=== PATIENT | male | born 1935 | race Caucasian/White ===

== ENCOUNTER 2019-09-18 08:27 | Outpatient (CLI) | payer MEDICARE, SELFPAY ==
--- NOTE | 2019-09-18 08:34 | XR_ITS ---
WS: [id number] CHEST 2 VIEWS HISTORY: COUGH, ASTHMA COMPARISON: None available. Lungs: Clear with no abnormality. No pleural effusion or pneumothorax. Cardiac size: Normal. Mediastinum/Aorta: Mild atherosclerosis aorta. Bones: Mild thoracic spondylosis. Advanced degenerative changes at the AC joints. XR/XR chest 2V* [id number] IMPRESSION: No acute cardiopulmonary disease. Partially calcified aorta.
== END 2019-09-18 08:28 | disposition home or self-care (01) ==
LOC: RADWPI 08:31
PROVIDERS: PCP Family Medicine; Referring Provider Family Medicine; Visit Provider Family Medicine
DX: J45.909 Unspecified asthma, uncomplicated (principal); I70.0 Atherosclerosis of aorta
CPT/HCPCS: 71046

== ENCOUNTER 2020-01-29 14:23 | Outpatient (CLI) | payer MEDICARE, SELFPAY ==
--- NOTE | 2020-01-29 14:56 | CT_ITS ---
WS: [id number] CT HEAD TECHNIQUE: Noncontrast CT of the head obtained from the skullbase to the vertex. CLINICAL INFORMATION: TIA COMPARISON: CT 7 ,012. DLP: 992.[address] scans at [facility] use at least one of these dose optimization techniques: automat ed exposure control; mA and/or kV adjustment per patient size (includes targeted exams where dose is matched to clinical indication); or iterative reconstruction. FINDINGS: No evidence of intracranial hemorrhage or mass effect. Ventricular system and basal cisterns are gautam nt. Moderate small vessel changes with moderate parenchymal volume loss. No extra-axial fluid collect ions. No evidence of mass or mass effect. Normal aggarwal-white differentiation. Mastoid air cells are well aerated. Mild mucosal thickening in the paranasal sinuses with partial opa cification the ethmoid air cells. Chronic appearing bony remodeling in the maxillary sinuses consiste nt with chronic sinusitis. CT/CT head wo con* [id number] IMPRESSION: 1. No evidence of intracranial hemorrhage or mass effect. 2. Moderate small vessel changes with moderate parenchymal volume loss. 3. Partial opacification of the ethmoid air cells with mucosal thickening. Ashley dence of chronic sinusitis in the maxillary sinuses. 4. Mastoid air cells are well aerated.
== END 2020-01-29 14:24 | disposition home or self-care (01) ==
LOC: RADWPI 14:27
PROVIDERS: PCP Family Medicine; Visit Provider Family Medicine
DX: G45.9 Transient cerebral ischemic attack, unspecified (principal)
CPT/HCPCS: 70450

== ENCOUNTER 2020-02-15 13:05 | Outpatient (CLI) | payer MEDICARE, SELFPAY ==
--- NOTE | 2020-02-15 13:11 | USCV_ITS ---
Jordon Posey Age: 84 Gender: M : 1935 Exam Date: 02/15/2020 13:40 Ordering Phys: Telma Chance MD Technologist: Mellisa Green Exam Location: [facility] [place]ication: TIA BP: 109 / 58 HR: 61 Rhythm: Sinus Technical Quality: Technically difficult study MEASUREMENTS (Male / Female) Normal Values 2D ECHO LV Diastolic Diameter PLAX 2.9 cm 4.2 - 5.9 / 3.9 - 5.3 cm LV Systolic Diameter PLAX 1.7 cm LV Chamber Size 2.6 cm IVS Diastolic Thickness 1.5 cm 0.6 - 1.0 / 0.6 - 0.9 cm IVS Systolic Thickness 1.6 cm LVPW Diastolic Thickness 1.8 cm 0.6 - 1.0 / 0.6 - 0.9 cm LVPW Systolic Thickness 2.3 cm RV Chamber Size 2.6 cm LVOT Diameter 2.1 cm LV Ejection Fraction 2D Teich 73.6 % LV Ejection Fraction MOD 2C 64.0 % LV Ejection Fraction 2C AL 63.9 % LA Diameter 4.0 cm LA Width 4.1 cm LA Height 4.5 cm RA Width 3.1 cm RA Height 4.6 cm Aorta at Sinotubular Diameter 3.0 cm M-MODE LV Diastolic Diameter MM 5.3 cm 4.2 - 5.9 / 3.9 - 5.3 cm LV Systolic Diameter MM 3.8 cm LV Ejection Fraction MM Teich 54.8 % IVS Diastolic Thickness MM 0.8 cm 0.6 - 1.0 / 0.6 - 0.9 cm IVS Systolic Thickness MM 0.9 cm LVPW Diastolic Thickness MM 0.8 cm 0.6 - 1.0 / 0.6 - 0.9 cm LVPW Systolic Thickness MM 1.2 cm Aortic Annulus Diameter 3.6 cm LA Ao Ratio MM 1.1 MV E Point Septal Separation 0.7 cm DOPPLER AV Peak Velocity 114.0 cm/s LVOT Peak Velocity 97.0 cm/s AV Area Cont Eq vti 2.9 cm squared AV Area Cont Eq pk 2.9 cm squared MV Area PHT 2.7 cm squared Mitral E to A Ratio 0.9 MV E' Velocity 15.0 cm/s Mitral E to MV E' Ratio 5.3 Mitral E to LV E' Lateral Ratio 4.8 Mitral E to LV E' Septal Ratio 5.9 TR Peak Velocity 175.0 cm/s TR Peak Gradient 12.2 mmHg TV Peak E Velocity 43.0 cm/s Right Atrial Pressure 3.0 mmHg Pulmonary Artery Systolic Pressu 15.3 mmHg PV Peak Velocity 58.0 cm/s RV Acceleration Time 0.3 s RV Ejection Time 0.4 s RV AcT/ET 0.7 FINDINGS Left Ventricle Normal left ventricular size and systolic function, EF 58 %. No regional wall motion abnormalities. Moderate left ventricular hypertrophy. Right Ventricle The right ventricle is normal in size and function. Right Atrium The right atrium is normal in size. Left Atrium The left atrium is normal in size. Mitral Valve Thickened mitral valve. Mild mitral annular calcification. Aortic Valve Thickened aortic valve. Trace aortic valve regurgitation. Tricuspid Valve No gross abnormalities noted Pulmonic Valve Pulmonic valve not well visualized. Pericardium Normal pericardium without effusion. Aorta Plaque seen in the ascending aorta. Mildly dilated aortic root, measuring 3.8 cm just above the level of the sinuses CONCLUSIONS Normal left ventricular size and systolic function, EF 58 %. No regional wall motion abnormalities. Moderate left ventricular hypertrophy. Thickened mitral valve. Mild mitral annular calcification. Thickened aortic valve. Trace aortic valve regurgitation. There is no pericardial effusion. Plaque seen in the ascending aorta. Mildly dilated aortic root, measuring 3.8 cm just above the level of the sinuses No previous study is available for comparison. Technically somewhat difficult study because of poor ultrasonic window Dr Jocelin Akins MD FACC (Electronically Signed) Final Date: 15 February 2020 16:29 S
--- NOTE | 2020-02-15 13:15 | USCV_ITS ---
Jordon Posey Age: 84 Gender: M : 1935 Exam Date: 02/15/2020 13:51 Ordering Phys: Telma Chance MD Technologist: Mellisa Green Exam Location: [facility] – [place] Indication: TIA Risk Factors: Previous Vascular Surgery: Right Brachial BP: / Left Brachial BP: / Right Left Velocity (cm/s) Spectral Plaque Velocity (cm/s) Spectral Plaque Syst/Diast Broadening Syst/Diast Broadening 79.40/ 17.60 Prox CCA 67.90 / 14.90 94.80/ 25.40 Mid CCA 60.40 / 15.80 71.70/ 22.10 Distal CCA 53.90 / 16.70 54.90/ 20.00 Prox ICA 43.10 / 16.20 62.00/ 23.50 Mid ICA 58.80 / 28.20 63.50/ 29.20 Distal ICA 74.50 / 29.00 123.50 ECA 73.60 0.67 ICA/CCA 1.23 Antegrade Vertebral Antegrade 74.10/ 23.00 cm/s 39.60/ 15.90 cm/s Tri Subclavian Tri 44.40 53.30 FINDINGS Mild to moderate heterogeneous plaques at the left bifurcation and proximal carotid artery Minimal plaques in the right bifurcation and internal carotid artery Antegrade flow in the vertebral arteries bilaterally Normal Doppler flow velocities in the external carotid and subclavian arteries bilaterally CONCLUSIONS Mild to moderate heterogeneous plaques at the left bifurcation and internal carotid arterywith velocity elevation consistent with 16-49% stenosis. Minimal plaques in the right bifurcation and internal carotid artery. No previous studies are available for comparison. Dr Jocelin Akins MD FACC (Electronically Signed) Final Date: 15 February 2020 18:37 S
== END 2020-02-15 13:06 | disposition home or self-care (01) ==
LOC: RAD 13:05
PROVIDERS: PCP Family Medicine; Visit Provider Family Medicine
DX: G45.9 Transient cerebral ischemic attack, unspecified (principal)
CPT/HCPCS: 93306; 93880

== ENCOUNTER → 2020-02-21 09:54 | Outpatient (BNVA) | payer MEDICARE, SELFPAY | PROVIDERS: PCP Family Medicine; Referring Provider Family Medicine; Visit Provider Nurse Practitioner | DX: G25.9 Extrapyramidal and movement disorder, unspecified (principal); I99.8 Other disorder of circulatory system; Z86.73 Personal history of transient ischemic attack (TIA), and cerebral infarction without residual deficits | CPT/HCPCS: 99204 ==

== ENCOUNTER 2020-03-05 12:25 | Outpatient (CLI) | payer MEDICARE, SELFPAY ==
--- NOTE | 2020-03-05 13:00 | MR_ITS ---
WS: [id number] MRI HEAD WITHOUT CONTRAST TECHNIQUE: Sagittal T1, T2 axial, T2 axial FLAIR, axial and coronal T1 images, axial susceptibility w eighted imaging, axial diffusion weighted images, and coronal T2 images were obtained. CLINICAL INFORMATION: Z86.73 Personal history of transient ischemic attack (TIA... COMPARISON: CT January 29, 2020 FINDINGS: No evidence of restricted diffusion to suggest acute ischemia. Ventricular system and basal cisterns are patent. Moderate small vessel changes. Moderate parenchymal volume loss. Small vessel changes in the yayo. Normal vascular flow voids at the skull base. No extra-axial fluid collections. No evidence of mass or mass effect. Moderate mucosal thickening in the paranasal sinuses with partial opacification of the right frontal sinus and frontal ethmoidal recesses. Evidence of prior maxillary antrostomies with changes of chroni c sinusitis in the maxillary sinuses with mild mucosal thickening. No hemosiderin on susceptibly weighted images. Normal optic chiasm and pituitary infundibulum. Mild t o moderate symmetric atrophy involving the temporal lobes and hippocampal formations. MR/MR head wo con* [id number] IMPRESSION: 1. No evidence of restricted diffusion to suggest acute ischemia. 2. Moderate small vessel changes with moderate parenchymal volume loss. 3. Moderate mucosal thickening with partial opacification of the right frontal sinus and frontal ethmoidal recesses. Evidence of prior maxillary sinus antros tomies. 4. Mild to moderate symmetric atrophy involving the temporal lobes and hippoca mpal formations. 5. No hemosiderin on susceptibly weighted images.
== END 2020-03-05 12:26 | disposition home or self-care (01) ==
LOC: RADSHAW 12:29
PROVIDERS: PCP Family Medicine; Visit Provider Nurse Practitioner
DX: Z86.73 Personal history of transient ischemic attack (TIA), and cerebral infarction without residual deficits (principal)
CPT/HCPCS: 70551

== ENCOUNTER → 2020-04-30 13:04 | Outpatient (BNVA) | payer MEDICARE, SELFPAY | PROVIDERS: PCP Family Medicine; Visit Provider Nurse Practitioner | DX: R25.1 Tremor, unspecified (principal) | CPT/HCPCS: 99213 ==

== ENCOUNTER → 2022-10-14 08:10 | Outpatient (BNVA) | payer MEDICARE, SELFPAY | PROVIDERS: PCP Family Medicine Adult Medicine; Visit Provider Family Medicine Adult Medicine | DX: E53.8 Deficiency of other specified B group vitamins (principal); G20 Parkinson's disease; N40.0 Benign prostatic hyperplasia without lower urinary tract symptoms; R60.9 Edema, unspecified; G45.9 Transient cerebral ischemic attack, unspecified; K59.09 Other constipation; K31.84 Gastroparesis; E78.00 Pure hypercholesterolemia, unspecified | CPT/HCPCS: 80053; 80061; 83036; 84443; 85025 ==

== ENCOUNTER → 2022-12-08 15:08 | Outpatient (BNVA) | payer MEDICARE, SELFPAY | PROVIDERS: PCP Family Medicine Adult Medicine; Visit Provider Surgery | DX: K40.20 Bilateral inguinal hernia, without obstruction or gangrene, not specified as recurrent (principal) | CPT/HCPCS: 99203 ==

== ENCOUNTER 2022-12-30 08:57 | Day surgery (SDC) | payer MEDICARE, SELFPAY ==
[2022-12-29 12:11] VITALS: BMI 22.8
[2022-12-30] VITALS (9 sets, daily range): BP systolic 141–185; BP diastolic 72–96; PULSE 66–80; RESP 16–18; TEMP 36.1–36.6; O2SAT 93–100
--- NOTE | 2022-12-30 09:38 | ECG_ITS ---
[facility] Test Date: 2022-12-30 Pat Name: Jordon Posey Department: Room: Gender: Male Care Analyst: : 1935 Requested By: Darian Segovia Order Number: [id number] Charlie MD: Costa Gonzales M.D. Measurements Intervals Ralph Rate: 69 P: 60 WY: 179 QRS: 44 QRSD: 87 T: 38 QT: 388 QTc: 418 Interpretive Statements SINUS RHYTHM WITH OCCASIONAL SUPRAVENTRICULAR PREMATURE COMPLEXES No previous ECG available for comparison Electronically Signed On 12-30-2022 16:17:19 CDT by Costa Gonzales M.D. [id number]
[2022-12-30] MEDS: sodium chloride 0.9% 1,000 ML 30 ML IV (09:51)
[2022-12-30] MEDS: vancomycin 1,000 MG in sodium chloride 0.9% 250 ML 250 MG IV (09:52)
--- NOTE | 2022-12-30 10:48 | W.PM.OPSUD ---
Surgery/Procedure H&P Update DATE OF PROCEDURE: December 30, 2022 DATE H&P PERFORMED: 12/08/22 H&P UPDATE INFORMATION: I have reviewed H&P completed within last 30 days, I have examined patient prior to procedure and No changes to prior documentation PREOP DIAGNOSIS: Bilateral inguinal hernias PLANNED PROCEDURE: Operation Date: 12/30/22 10:45 Proposed Procedures p ap bilateral inguinal hernia with mesh 14486 2x K40.20(Bilateral) - Maxx Wolfe DO
[2022-12-30] MEDS: lidocaine-epi 2% 20 mL INJ (11:27)
--- NOTE | 2022-12-30 12:03 | PM.OP ---
Operative Report Date of procedure: December 30, 2022 Pre-op diagnosis: Preop Diagnosis Bilateral inguinal hernias Post-op diagnosis: other (Bilateral indirect inguinal hernias) Procedure done: Laparoscopic repair of bilateral inguinal hernias with mesh Implants: Left and right 3D max extra-large mesh Surgeon: Dr. Maxx Wolfe DO Anesthesia: General Estimated blood loss (mL): 5 Complications: None apparent Brief History: This is a very pleasant 87-year-old gentleman who presented my office with bilateral inguinal hernias. Laparoscopic repair with mesh was indicated. The risk and benefits were explained and documented. Procedure: Patient was wheeled into the operative room and placed on the OR table in a supine position. Abdomen was inspected prepped and draped in usual sterile fashion. Time-out was performed and all present were in agreement. A 15 blade scalpel was used to make 1.2 centimeter incision infraumbilically. Combination of sharp and blunt dissection was performed down to the anterior rectus sheath which was opened sharply. The dissecting balloon was then inserted into the space of Retzius and blown up. We put the camera into the port and identified that we were in the correct space. I then placed 2 5 millimeter trocars suprapubically in the midline. I then used endokitners to bluntly dissect in the space of Retzius out laterally. An indirect inguinal hernia was identified on the right. Blunt dissection was performed to dissect down the hernia sac until the vas deferens dove medially. An extra-large right inguinal mesh was then placed into the space of Retzius. The mesh was unrolled and tacked once medially at the pubic bone. The mesh laid out nicely over the spermatic cord. An indirect inguinal hernia was identified on the left. Blunt dissection was performed to dissect down the hernia sac until the vas deferens dove medially. An extra-large left inguinal mesh was then placed into the space of Retzius. The mesh was unrolled and tacked once medially at the pubic bone. The mesh laid out nicely over the spermatic cord. I watched the hernia sacs remain in place as insufflation was removed. Incisions were closed with 4-0 Monocryl in a subcuticular interrupted fashion. Skin glue was applied. Patient tolerated the procedure well.
[2022-12-30] MEDS: HYDROcodone-acetaminophen 5-325 mg Tablet 1 TAB PO (12:55)
--- NOTE | 2022-12-30 13:53 | P.ANESASSM_ITS ---
Pre-Anesthetic Assessment Height/Weight: Height 1.73 m Weight 68.039 kg Temp Pulse Resp BP Pulse Ox O2 Del Method O2 Flow Rate 97.0 F L 80 16 150/72 93 Room Air 6 12/30/22 12:40 12/30/22 13:02 12/30/22 13:02 12/30/22 13:02 12/30/22 13:02 12/30/22 13:02 12/30/22 12:23 Preop Diagnosis: Bilateral inguinal hernias Operation Date: 12/30/22 10:45 Proposed Procedures p ap bilateral inguinal hernia with mesh 71155 2x K40.20(Bilateral) - Maxx Wolfe DO Familial anesthetic complications: none Was Beta Liana taken within 24 hours: N/A Was Clonidine taken within 24 hours: N/A Last intake: Intake Last Liquid Date 12/29/22 Last Liquid Time 23:55 Last Solid Date 12/29/22 Last Solid Time 18:00 Social No alcohol and No tobacco Exam alert, oriented x 3, clear to auscultation bilaterally and regular rate & rhythm Airway Submandibular: within normal limits Cervical ROM: within normal limits Mallampati: Class II Dentition: full Pulmonary Asthma CV/HEM Anemia Neuropsych Dementia (Parkinson's) and Transient Ischemic Attack [place] Anesthetic Plan ASA status: 3 Anesthesia: General Medications/Allergies Home Medications Medication Instructions Recorded Confirmed Last Taken Type lactobacillus combination no.9 4 4,000 mmu cells PO DAILY 12/11/19 12/29/22 12/29/22 History billion cell capsule (Adult 50 Plus Probiotic) omega-3 fatty acids 1,000 mg 1,000 mg PO DAILY 12/11/19 12/29/22 12/29/22 History capsule (Fish Oil Concentrate) ascorbate calcium (vitamin C) 500 500 mg PO BID 02/21/20 12/29/22 12/29/22 History mg tablet cholecalciferol (vitamin D3) 50 2,000 unit PO DAILY 02/21/20 12/29/22 12/29/22 History mcg (2,000 unit) capsule syringe with needle 3 mL 23 gauge #100 ea 11/20/21 12/08/22 12/29/22 Rx x 1 1/2 (BD Luer-Alyce Syringe) cyanocobalamin (vitamin B-12) 1,000 mcg IM .monthly 90 days #30 01/21/22 12/29/2223 Rx 1,000 mcg/mL injection solution mL albuterol sulfate 90 mcg/actuation 2 puff inhalation Q6H PRN 05/21/22 12/29/22 12/29/22 Rx aerosol inhaler (Proventil HFA) shortness of breath or wheezing #8.5 grams carbidopa 25 mg-levodopa 100 mg 1 tab PO TID #270 tabs 05/21/22 12/29/22 12/29/22 Rx tablet montelukast 10 mg tablet See Rx Instructions .Route 05/21/22 12/29/22 12/29/22 Rx .COMPLEX #90 tabs fluticasone propionate 50 See Rx Instructions .Route 06/28/22 12/29/22 12/30/22 Rx mcg/actuation nasal .COMPLEX #48 grams spray,suspension budesonide-formoterol HFA 160 See Rx Instructions .Route 08/24/22 12/29/22 12/29/22 Rx mcg-4.5 mcg/actuation aerosol .COMPLEX #10.2 grams inhaler (Symbicort) potassium citrate 10 mEq (1,080 10 meq PO BID #180 tabs 09/01/22 12/29/22 12/29/22 Rx mg) tablet,extended release tamsulosin 0.4 mg capsule (Flomax) 0.4 mg PO DAILY #90 caps 09/01/22 12/29/22 12/29/22 Rx diphenhydramine HCl 50 mg capsule 50 mg PO TID PRN Insomnia 12/29/22 12/29/22 12/29/22 History (Sleep Aid (diphenhydramine)) docusate sodium 100 mg capsule 100 mg PO BID #14 caps 12/30/22 Unknown Rx (DOK) hydrocodone 5 mg-acetaminophen 325 1 tab PO Q6H PRN pain #20 tabs 12/30/22 Unknown Rx mg tablet Allergies Allergy/AdvReac Type Severity Reaction Status Date / Time aspirin Allergy Severe ALGY-Difficulty Verified 12/30/22 09:41 Breathing Penicillins Allergy Severe ALGY-Rash Verified 12/30/22 09:41 shellfish derived Allergy Severe ALGY-Difficulty Verified 12/30/22 09:41 Breathing chocolate Allergy Intermediate ADR-Headach Uncoded 12/30/22 09:41 e [facility] Anesthesia Medical History Asthma B12 deficiency Bilateral lower extremity edema BPH (benign prostatic hyperplasia) Constipation, chronic Edema Elevated TSH Gastroparesis H/O nephrolithotomy with removal of calculi Hypercholesteremia Inguinal hernia Kidney stone Parkinson disease TIA (transient ischemic attack) Vagus nerve disease or syndrome Surgical History H/O hemorrhoidectomy History of esophagogastroduodenoscopy (EGD) Hx of colonoscopy Family History Brother CAD (coronary artery disease) Father Cancer Lung Social History Smoking and tobacco status: never smoked Alcohol intake: never Substance/Drug Use: never Lives independently: Yes Household members: spouse Marital status: Current occupational status: retired Do you think of yourself as: Straight/Heterosexual Current gender identity: Male Special mahamed needs: No Data Anesthesia Cardiac Studies: Echocardiogram Ultrasound 02/15/20 Holter Monitor 10/18/19
--- NOTE | 2022-12-30 15:30 | ANE.PACU2 ---
Inpatient post-anesthesia follow up: Airway intact: Yes Vital signs: Temperature 97.0 F Pulse Rate 80 Respiratory Rate 16 Blood Pressure 150/72 Pulse Oximetry 93 Oxygen Delivery Me thod Room Air Oxygen Flow Rate 6 Fraction of Inspir ed Oxygen Hydration adequate: Yes Nausea and vomiting: No Pain level: 3 Mental status: Baseline
== END 2022-12-30 13:31 | disposition home or self-care (01) ==
PROVIDERS: PCP Family Medicine Adult Medicine; Visit Provider Surgery
PROC: (CPT 49650; principal; 2022-12-30 10:35)
DX: K40.20 Bilateral inguinal hernia, without obstruction or gangrene, not specified as recurrent (principal); J45.909 Unspecified asthma, uncomplicated; D64.9 Anemia, unspecified; E53.9 Vitamin B deficiency, unspecified; N40.0 Benign prostatic hyperplasia without lower urinary tract symptoms; G20 Parkinson's disease; F02.80 Dementia in other diseases classified elsewhere, unspecified severity, without behavioral disturbance, psychotic disturbance, mood disturbance, and anxiety; I25.2 Old myocardial infarction
CPT/HCPCS: 49650; 51702; 93005; C1781; J1100; J2405; J2704; J2710; J3010; J3370; J3490; J7030; J7050

== ENCOUNTER → 2023-01-11 08:52 | Outpatient (BNVA) | payer MEDICARE, SELFPAY | PROVIDERS: PCP Family Medicine Adult Medicine; Visit Provider Surgery | DX: Z98.890 Other specified postprocedural states (principal); Z87.19 Personal history of other diseases of the digestive system | CPT/HCPCS: 99024 ==

== ENCOUNTER → 2023-06-15 07:51 | Outpatient (BNVA) | payer MEDICARE, SELFPAY | PROVIDERS: PCP Family Medicine Adult Medicine; Referring Provider Family Medicine Adult Medicine; Visit Provider Specialist | DX: R79.89 Other specified abnormal findings of blood chemistry (principal); E53.8 Deficiency of other specified B group vitamins; G20.C Parkinsonism, unspecified; R60.9 Edema, unspecified | CPT/HCPCS: 36415; 82607; 84443; 99204 ==

== ENCOUNTER → 2023-12-07 11:13 | Outpatient (BNVA) | payer MEDICARE, SELFPAY | PROVIDERS: PCP Family Medicine Adult Medicine; Visit Provider Specialist | DX: G20.A1 Parkinson's disease without dyskinesia, without mention of fluctuations (principal) | CPT/HCPCS: 99214 ==

== ENCOUNTER → 2024-07-12 09:25 | Outpatient (BNVA) | payer MEDICARE, SELFPAY | PROVIDERS: PCP Family Medicine Adult Medicine; Visit Provider Specialist | DX: R79.89 Other specified abnormal findings of blood chemistry (principal); E53.8 Deficiency of other specified B group vitamins; R60.9 Edema, unspecified; G20.A1 Parkinson's disease without dyskinesia, without mention of fluctuations; R13.12 Dysphagia, oropharyngeal phase | CPT/HCPCS: 99214 ==

== ENCOUNTER 2024-07-17 10:09 | Outpatient (RCR) | payer MEDICARE, SELFPAY | END 2024-08-04 23:59 | disposition home or self-care (01) | LOC: SST 10:09 | PROVIDERS: Visit Provider Specialist | DX: G20.A1 Parkinson's disease without dyskinesia, without mention of fluctuations (principal); R13.10 Dysphagia, unspecified | CPT/HCPCS: 92507; 92523; 92610 ==

== ENCOUNTER 2024-08-07 10:31 | Outpatient (CLI) | payer MEDICARE, SELFPAY ==
--- NOTE | 2024-08-07 11:00 | FL_ITS ---
WS: [id number] FL barium swallow modifd [id number] REASON FOR EXAM: R13.10 - Dysphagia, unspecified FLUOROSCOPY TIME: 0min [id number] # OF SPOT FILMS: 1 FINDINGS: The examination was supervised by the speech therapy department. Patient was examined in the sitting upright lateral projection. The swallowing of varying consistenci es of barium was monitored fluoroscopically and video recorded. A detailed report will be rendered by the speech therapy department. There was aspiration both with thickened and thin barium solutions.. FL/FL barium swallow modifd [id number] IMPRESSION: Modified barium swallow as above.
== END 2024-08-07 10:32 | disposition home or self-care (01) ==
LOC: RAD 10:32
PROVIDERS: Visit Provider Specialist
DX: R13.10 Dysphagia, unspecified (principal); G20.A1 Parkinson's disease without dyskinesia, without mention of fluctuations; R93.3 Abnormal findings on diagnostic imaging of other parts of digestive tract
CPT/HCPCS: 74230; 92611

== ENCOUNTER → 2024-08-08 10:45 | Outpatient (BNVA) | payer MEDICARE, SELFPAY | PROVIDERS: Visit Provider Specialist | DX: T17.908A Unspecified foreign body in respiratory tract, part unspecified causing other injury, initial encounter (principal); Z93.1 Gastrostomy status; G20.A1 Parkinson's disease without dyskinesia, without mention of fluctuations; R13.12 Dysphagia, oropharyngeal phase; X58.XXXA Exposure to other specified factors, initial encounter | CPT/HCPCS: 99215 ==

== ENCOUNTER → 2024-08-10 10:02 | Outpatient (BNVA) | payer MEDICARE, SELFPAY | PROVIDERS: Visit Provider Surgery | DX: R13.12 Dysphagia, oropharyngeal phase (principal); T17.908A Unspecified foreign body in respiratory tract, part unspecified causing other injury, initial encounter; X58.XXXA Exposure to other specified factors, initial encounter | CPT/HCPCS: 99214 ==